=== PATIENT | female | born 1995 | race Two or more races ===

== ENCOUNTER 2025-05-15 01:08 | Emergency (ER) | payer MEDICAID, SELFPAY ==
--- NOTE | 2025-05-15 01:44 | PD.EDALCOH ---
ED Alcohol RME/HPI General Chief Complaint: Alcohol Stated Complaint: BEEN DRINKING, VOMITING Time Seen by Provider: 05/15/25 02:37 Arrival date/time: 05/15/25 01:08 RME / HPI RME / HPI narrative: DR. NARAYAN MAIN ED EVALUATION: 30 y/o female presents to ED c/o epigastric pain, vomiting and diarrhea. Denies fevers chills chest pain palpitations dysuria hematuria melena bloody stools. Patient smokes marijuana. No other drugs. Also drinks alcohol. States she has drank alcohol in the past without any difficulties. No recent travel no sick contacts. No surgeries. Patient was brought to the hospital by her mother. No other concerns or complaints expressed at this time. Chronic alcohol use: Yes Related Data Home Medications ?Medication ?Instructions ?Recorded ?Confirmed vitamin-ferrous fumarate 1 tab PO QDAY 05/31/21 05/31/21 28 mg iron-folic acid 800 mcg tablet ( Vitamins with Minerals) Previous Rx's ?Medication ?Instructions ?Recorded dexamethasone 6 mg tablet 6 mg PO QDAY #7 tabs 07/15/22 Allergies Allergy/AdvReac Type Severity Reaction Status Date / Time No Known Allergies Allergy Verified 05/15/25 01:11 Review of Systems Review of Systems Systems Reviewed: All systems reviewed, normal except as documented Past Medical History Past Medical History REPRODUCTIVE: Positive Previous Pregnancies (2011, 2014, 2018, 2020) PSYCHO/SOCIAL: Positive Recreational Drug Use (HISTORY OF THC USE) OTHER HISTORY: Positive Hospitalization (CHILDBIRTH) Social History SUBSTANCE USE: marijuana ED Exam Narrative Physical exam: GEN. APPEARANCE: The patient is alert awake oriented X-3 in no distress, lying down comfortably, does not look ill/toxic. Patient has good eye contact. Patient is cooperative. VITALS: All vitals were reviewed and the pulse ox is % on room air which is normal according to my interpretation. HEENT: Normocephalic, atraumatic. Pupils are equal and reactive. Oral mucosa is moist. Patent Nares NECK: Supple, nontender, no thyromegaly, no meningismus, no JVD CHEST: Symmetrical, atraumatic, and with equal expansion , Nontender on palpation no deformity and no crepitus. CARDIOVASCULAR: Heart regular rhythm no murmur or gallop rub or extra beats. LUNGS: Clear to auscultation bilaterally with symmetrical chest rise. No laboring tachypnea or wheezing. No intercostal subcostal retraction. No rales and no rhonchi. ABDOMEN: Soft, flat, nontender to palpation, no guarding or rebound tenderness. There are no abnormal masses palpated. Active and normal bowel sounds. EXTREMITIES: Nontender. No edema. No cyanosis. Patient is able to move all 4 extremities well, with full ROM and good CSM. SKIN: Warm and dry, no jaundice or rashes noted. NEURO: Patient is ORTA x 4, Cranial nerves II through XII grossly intact. There is no focal neurologic deficits noted. GCS is 15, PNS and FINISHING ROOM OPERATOR appear grossly intact. PSYCHIATRIC: Patient is in normal mood and affect. Course Quality Measures none Orders Category Date Time Status UA, C/S IF [Urinalysis, C/S if Indicated] Stat Lab 05/15/25 04:08 Completed Ondansetron Odt [Zofran Odt] Med 05/15/25 03:33 Discontinued 4 mg PO X1 ONE Vital Signs Vital signs: Vital Signs Temperature 97.6 F 05/15/25 02:24 Pulse Rate 63 05/15/25 02:24 Respiratory Rate 19 05/15/25 02:24 Blood Pressure 109/71 05/15/25 02:24 Pulse Oximetry (%) 98 05/15/25 02:24 Oxygen Delivery Method Room Air 05/15/25 02:24 Discharge Plan Plan Patient Disposition: Elopement Prescriptions/Referrals Prescriptions/Med Rec: No Action dexamethasone 6 mg tablet 6 mg PO QDAY Qty: 7 0RF vit-iron fum-folic ac [ Vitamin with Minerals] 28 mg iron- 800 mcg Tablet 1 tab PO QDAY Problem List Clinical Impression: Vomiting, Cannabis use disorder, Acute epigastric pain Patient/Caregiver Discharge Instructions Discharge Activity: activity as tolerated Print Language: [place] Alcohol MDM Narrative MDM Narrative: Scribe Attestation: Veronica Ray, am scribing for and in the presence of Dr. Narayan. Provider Notation: Although this document has been carefully reviewed, there may still be some phonetic and other typographical errors.? These errors are purely grammatical due to imperfections in the software program and should not be construed in any way to? compromise the substance of the patient's medical care during this visit. Patient is a 30-year-old female with medical history notable for alcohol and marijuana use that to the emergency department concerns for nausea vomiting and epigastric pain. Vital signs and exam as above. Concern for pancreatitis, urinary tract infection, plan nephritis, cannabinoid hyperemesis, intoxication, gastritis among others. Ordered labs, medication for symptom relief. Patient eloped before lab results finalized. Attempt to call patient, patient not available. Patient was no longer in the waiting room. Patient has eloped. Patient data External records reviewed:: [facility] previous records (No recent ED records available for review.) and EMS form Clinical information provided by:: patient and EMS Social determinants that could affect healthcare access:: alcohol use Patient has the following chronic illnesses:: None reported. How is presenting disease/condition affected by chronic disease/condition?: exacerbated by Evaluation data The following diagnostics were reviewed and interpreted by me:: lab results Lab and/or radiology exams considered but not ordered:: None Interpretation Summary: Pending labs. Medications / Prescriptions Medications or Prescriptions considered but not ordered:: None Medication administrations:: Medication Administration History Discontinued Medications Ondansetron HCl (Ondansetron Odt 4 Mg Tabrap) 4 mg PO X1 ONE; Protocol Stop: 05/15/25 03:34 Last Admin: 05/15/25 04:17 Dose: 4 mg Documented By: CVL See above if any. Consultations Consultation(s) initiated? (list below): No Diagnosis Differential diagnosis alcohol: alcohol intoxication and other (Liver disease) Most likely diagnosis given after review of the tests above:: Epigastric pain, nausea Admission Indicated Admission indicated?: not indicated Explain why admission is indicated or not indicated:: Patient eloped. Admission Request Was there a request for admission?: No Disposition Plan Disposition Plan: other (specify) (Patient eloped.)
[2025-05-15 02:24] VITALS: BP 109/71; PULSE 63; RESP 19; TEMP 36.4; O2SAT 98
[2025-05-15] MEDS: ONDANSETRON ODT 4 MG TABRAP PO (04:17)
--- NOTE | 2025-05-15 04:38 | PC.NURSE ---
SECURITY TOLD ME THAT PT AND PT'S FAMILY TOOK OFF.
[2025-05-15 04:45] LABS: Collection Type, Urine Clean Catch
[2025-05-15 05:07] LABS: Bilirubin,Urine Negative (Negative); Blood,Urine 2+ (Negative); Clarity,Urine Turbid (Clear/Hazy); Color,Urine Yellow (Lt Yel-Yel); Culture Indicated,Urine Contaminated; Glucose, Urine Trace (Negative); Ketones,Urine 3+ (Negative); Leukocyte Esterase,Urine Negative (Negative); Nitrite,Urine Negative (Negative); PH,Urine 7.5 (5.0-7.0); Protein,Urine 1+ (Neg - Trace); RBC,Urine 71 /hpf (0-3); Specific Gravity,Urine 1.023 (1.001-1.035); Squamous Epithelial Cell,Urine 90 /hpf (0-5); Urobilinogen,Urine Negative mg/dL (0.0-1.0); WBC,Urine 22 /hpf (0-5)
== END 2025-05-15 04:55 | disposition left against medical advice (07) ==
PROVIDERS: Emergency Provider Emergency Medicine; PCP Family Medicine
DX: R11.10 Vomiting, unspecified (principal); R10.13 Epigastric pain; F12.90 Cannabis use, unspecified, uncomplicated
CPT/HCPCS: 80053; 81001; 83690; 84703; 85025; 99281; Q0162